=== PATIENT | female | born 1985 | race Hispanic/Latino ===

== ENCOUNTER 2018-01-13 18:34 | Emergency (ER) | payer OTHER ==
[2018-01-13 18:42] VITALS: BP 111/71; PULSE 76; RESP 16; TEMP 98.9; O2SAT 99
--- NOTE | 2018-01-13 18:49 | ED PDOC ---
HPI: Wound Care - HPI Time Seen by Provider: 01/13/18 18:41 Chief Complaint (Nursing): Needle Stick Chief Complaint (Provider): Needle stick History Per: Patient Additional Complaint(s): Pt states she was stuck by solid needle during . Past Medical History Reviewed: Nursing Documentation, Vital Signs Vital Signs: Last Vital Signs Temp 98.9 F 01/13/18 18:36 Pulse 76 01/13/18 18:36 Resp 16 01/13/18 18:36 BP 111/71 01/13/18 18:36 Pulse Ox 99 01/13/18 18:36 - Medical History PMH: No Chronic Diseases - Family History Family History: States: Unknown Family Hx - Social History Current smoker - smoking cessation education provided: No Alcohol: None - Allergies Allergies/Adverse Reactions: Allergies Allergy/AdvReac Type Severity Reaction Status Date / Time No Known Allergies Allergy Verified 01/13/18 18:36 Review of Systems ROS Statement: Except As Marked, All Systems Reviewed And Found Negative Physical Exam - Reviewed Nursing Documentation Reviewed: Yes Vital Signs Reviewed: Yes - Physical Exam Appears: Positive for: Well, No Acute Distress Extremity: Positive for: Other (R 2ND DIGIT: Puncture wound distal anterior digit, no active bleeding, ecchymosis) - Laboratory Results Result Diagrams: 01/13/18 20:20 01/13/18 20:20 - ECG O2 Sat by Pulse Oximetry: 99 Disposition - Clinical Impression Clinical Impression: Needle stick injury - Disposition Disposition: Routine/Home Disposition Time: 19:17 Condition: GOOD Additional Instructions: FOLLOW-UP WITH [facility]. Instructions: Blood or Body Fluid Exposure Forms: [employer] (E[place]ian)
[2018-01-13 20:31] LABS: BASO % 0.7 % (0.0-2.0); EOS # 0.1 K/uL (0.0-0.7); EOS % 1.8 % (0.0-4.0); HEMOGLOBIN 12.9 g/dL (12.0-16.0); LYMPH # 2.5 K/uL (1.0-4.3); MEAN CELL VOLUME 90.2 fl (81.0-99.0); MEAN CORPUSCULAR HEMOGLOBIN 30.1 pg (27.0-31.0); MEAN CORPUSCULAR HGB CONC 33.4 g/dL (33.0-37.0); MEAN PLATELET VOLUME 10.5 fl (7.2-11.7); MONO # 0.3 K/uL (0.0-0.8); MONO % 4.8 % (0.0-10.0); NEUT # 4.1 K/uL (1.8-7.0); NEUT % 57.7 % (50.0-75.0); RBC 4.29 Mil/uL (3.80-5.20)
[2018-01-13 20:53] LABS: ALB/GLOB RATIO 1.9 (1.0-2.1); ALBUMIN 4.6 g/dL (3.5-5.0); ALT/SGPT 28 U/L (9-52); AMYLASE 73 U/L (30-110); AST/SGOT 26 U/L (14-36); BLOOD UREA NITROGEN 13 mg/dl (7-17); CALCIUM 9.4 mg/dL (8.4-10.2); GFR NON-AFRICAN AMERICAN > 60
[2018-01-13 20:54] LABS: SQUAMOUS EPITHIAL 3 /hpf (0-5); URINE BILIRUBIN NEGATIVE (NEGATIVE); URINE BLOOD SMALL (NEGATIVE); URINE CLARITY SLIGHTY-CLOUDY (Clear); URINE COLOR YELLOW (YELLOW); URINE GLUCOSE (UA) NEG (Normal); URINE LEUKOCYTE ESTERASE TRACE Leu/uL (Negative); URINE PROTEIN NEGATIVE (NEGATIVE); URINE UROBILINOGEN 0.2-1.0 mg/dL (0.2-1.0)
[2018-01-14 12:36] LABS: HEPATITIS B SURFACE AG Negative (NEGATIVE)
[2018-01-14 12:42] LABS: HEPATITIS A IGM NEGATIVE (NEGATIVE); HEPATITIS B CORE AB NEGATIVE (NEGATIVE)
[2018-01-14 12:53] LABS: HEPATITIS C ANTIBODY NEGATIVE (NEGATIVE)
== END 2018-01-13 20:00 | disposition home or self-care (01) ==
LOC: H.ER 18:34
DX: S61.230A Puncture wound without foreign body of right index finger without damage to nail, initial encounter (principal); W46.0XXA Contact with hypodermic needle, initial encounter; Y99.0 Civilian activity done for income or pay; Z77.21 Contact with and (suspected) exposure to potentially hazardous body fluids